=== PATIENT | male | born 1940 | race Caucasian/White ===

== ENCOUNTER 2016-09-24 15:35 | Inpatient (IN) | payer MEDICARE, MEDICAID ==
--- NOTE | 2016-09-24 18:20 | ED Physician Chart ---
Chief Complaint/HPI - Patient Information Date Seen:: 09/24/16 Time Seen:: 18:17 Chief Complaint:: COFFEE GROUNDS EMESIS X 2 DAYS History of Present Illness:: The patient is nonverbal and unable to provide a accurate history. Nursing notes which accompany the patient stated that he has had coffee ground emesis over the past 24 hours. 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 Hypertension and a history of CHF. Allergies:: Allergies Allergy/AdvReac Type Severity Reaction Status Date / Time No Known Allergies Allergy Verified 05/13/16 12:35 Vitals:: Vital Signs - 8 hr 09/24/16 16:06 Temp 96.6 F HR 89 RR 19 BP 111/62 O2 Sat % 97 <Manuel Guzman - Last Filed: 09/24/16 18:52> - Patient Information Allergies:: Allergies Allergy/AdvReac Type Severity Reaction Status Date / Time No Known Allergies Allergy Verified 05/13/16 12:35 Vitals:: Vital Signs - 8 hr 09/24/16 16:06 Temp 96.6 F HR 89 RR 19 BP 111/62 O2 Sat % 97 <Siddharth Augustine - Last Filed: 09/24/16 20:33> Review of Systems - Review of Systems General/Constitutional: Other (the patient is too demented to provide a reliable review of systems.) <Manuel Guzman - Last Filed: 09/24/16 18:52> Past Medical History - Past Medical History Past Medical History: HTN, CHF, CVA/TIA, Other (failure to thrive.) Social History: Care Facility (patient has a gastrostomy tube in the epigastric region and a colostomy in the lower part of the abdomen.) Employment:: Patient unable to provide any social history. <Manuel Guzman - Last Filed: 09/24/16 18:52> Family Medical History - Family Member Mother History Unknown: Yes Father History Unknown: Yes <Manuel Guzman - Last Filed: 09/24/16 18:52> Physical Exam - Physical Examination Other Gen/Cons comments:: The patient is a 75-year-old male who is nonverbal and here for evaluation of coffee ground emesis and pressure sores. Head: Atraumatic Eyes: Lids, conjuctiva normal, PERRL Other Eyes comments:: Uncooperative with the EOM exam. Other Skin comments:: The patient has pressure ulcerations involving the coccyx region, and both feet. ENMT: Nasal exam nl Other ENMT comments:: Multiple missing and decayed teeth. Gag reflex is intact oral hydration is adequate. Neck: No JVD Other Neck comments:: The patient has muscular rigidity on examination of the neck to both AP flexion and lateral rotation to both the right and the left. Respiratory: Nl effort/Exclusion, No Wheeze/Rhonchi/Rales (on anterior auscultation the patient has no wheezing rales or rhonchi.) GI: No tenderness/rebounding/guarding, No organomegaly, No mass/bruits ( decreased but present bowel sounds.) Other comments:: West catheter is in place. <Manuel Guzman - Last Filed: 09/24/16 18:52> Labs/Radiology/EKG Results - Lab Results Results: Laboratory Tests 09/24/16 09/24/16 09/24/16 19:27 19:27 19:27 WBC 22.7 H* D RBC 3.04 L Hgb 9.3 L Hct 27.7 L MCV 91.2 MCH 30.7 MCHC Differential 33.7 RDW 16.0 Plt Count 246 D MPV 9.2 PT 10.4 INR 1.05 PTT (Actin FS) 27.6 Sodium 144 Potassium 2.8 L* Chloride 115 H Carbon Dioxide 23.6 Anion Gap 8.2 BUN 32 H Creatinine 0.7 Est GFR ( Amer) TNP Est GFR (Non-Af Amer) TNP BUN/Creatinine Ratio 45.7 Glucose 137 H Calcium 7.5 L Total Bilirubin 0.5 AST 51 H ALT 80 H Alkaline Phosphatase 118 H Total Protein 5.9 L Albumin 2.1 L Globulin 3.8 Albumin/Globulin Ratio 0.6 L <Siddharth Augustine - Last Filed: 09/24/16 20:33> ED Septic Shock - <6hrs of presentation: Vital Signs: Vital Signs - 8 hr 09/24/16 16:06 Temp 96.6 F HR 89 RR 19 BP 111/62 O2 Sat % 97 <Manuel Guzman - Last Filed: 09/24/16 18:52> - . Is Septic Shock (SBP<90, OR Lactate>4 mmol\L) present?: No - <6hrs of presentation: Vital Signs: Vital Signs - 8 hr 09/24/16 16:06 Temp 96.6 F HR 89 RR 19 BP 111/62 O2 Sat % 97 <Siddharth Augustine - Last Filed: 09/24/16 20:33> Reassessment (Disposition) - Reassessment Reassessment Condition:: Unchanged - Diagnosis Diagnosis:: GI BLEEDING SEVERE ANEMIA - Patient Disposition Discharge/Transfer:: Acute Care w/in this hosp Admitting Medical Physician:: Guillermo Vinson Condition at Disposition:: Unchanged <Siddhrath Augustine - Last Filed: 09/24/16 20:33> ED Discharge Plan <Manuel Guzman - Last Filed: 09/24/16 18:52> <Siddharth Augustine - Last Filed: 09/24/16 20:33> - Patient Disposition Admit/Discharge/Transfer: Acute Care w/in this hosp Condition at Disposition: Unchanged
[2016-09-24] MEDS ORDERED: Sodium Chloride 0.9% 1,000 ML IV ONE (18:36)
[2016-09-24 19:46] LABS: HEMATOCRIT 27.7 % (39.0-49.0); HEMOGLOBIN 9.3 gm/dL (12.6-17.4); MEAN CELL VOLUME 91.2 fl (80-99); MEAN CORPUSCULAR HEMOGLOBIN 30.7 pg (27.0-31.0); MEAN CORPUSCULAR HGB CONC 33.7 pg (28.0-36.0); MEAN PLATELET VOLUME 9.2 fl; RED BLOOD COUNT 3.04 Mil/cmm (3.80-5.80)
[2016-09-24 19:50] LABS: PLATELET COUNT 246 Th/cmm (150-400); WHITE BLOOD COUNT 22.7 Th/cmm (4.8-10.8)
[2016-09-24 19:58] LABS: ALB/GLOB RATIO 0.6 (1.0-1.8); ALKALINE PHOSPHATASE 118 U/L (34-104); ANION GAP 8.2 (7.0-16.0); BILIRUBIN,TOTAL 0.5 mg/dL (0.3-1.0); BUN - UREA NITROGEN 32 mg/dL (7-25); BUN/CREATININE RATIO 45.7; CALCIUM SERUM 7.5 mg/dL (8.6-10.3); CARBON DIOXIDE 23.6 mEq/L (21.0-31.0); CHLORIDE 115 mEq/L (98-107); CREATININE - SERUM 0.7 mg/dL (0.7-1.3); GLUCOSE 137 mg/dL (70-105); SGOT 51 U/L (13-39); SGPT/ALT 80 U/L (7-52); SODIUM SERUM 144 mEq/L (136-145)
[2016-09-24 20:05] LABS: INR 1.05 (0.5-1.4); PROTHROMBIN TIME (TEST) 10.4 SECONDS (9.5-11.5)
[2016-09-24 20:22] LABS: POTASSIUM SERUM 2.8 mEq/L (3.5-5.1)
[2016-09-24] MEDS ORDERED: 0.9% NS w/20 mEq KCL 1,000 ML IV SCH (20:26)
[2016-09-24 20:38] LABS: BAND NEUTROPHILE 8 % (0-10); BASOPHIL 0 % (0-3); EOSINOPHIL 2 % (0-5); NEUTROPHILS 83 % (40-80); PLATELET ESTIMATE ADEQUATE (NORMAL); PLATELET MORPHOLOGY NORMAL (NORMAL); TOTAL CELLS COUNTED 100
[2016-09-24] MEDS ORDERED: 0.9% NS w/20 mEq KCL 1,000 ML IV ONE (20:42)
[2016-09-24 22:03] LABS: URINE BILIRUBIN NEGATIVE (NEGATIVE); URINE BLOOD NEGATIVE (NEGATIVE); URINE COLOR YELLOW; URINE GLUCOSE (UA) NEGATIVE (NEGATIVE); URINE KETONE NEGATIVE (NEGATIVE); URINE PH 6.5; URINE PROTEIN TRACE mg/dL (NEGATIVE); URINE UROBILINOGEN 0.2 E.U./dL (0.2 - 1.0)
[2016-09-24 22:04] LABS: URINE BACTERIA NONE SEEN /hpf (NONE SEEN); URINE EPITHELIAL CELLS NONE SEEN /lpf (FEW); URINE RBC NONE SEEN /hpf (0-5); URINE WBC NONE SEEN /hpf (0-5)
[2016-09-24 22:34] VITALS: BP 156/70
[2016-09-24] MEDS ORDERED: Magnesium Hydroxide (MOM) 30 mL UDC GT PRN (22:49)
--- NOTE | 2016-09-24 22:54 | Admit Criteria Form ---
Admit Criteria Forms - Admit Criteria Diagnosis: GASTROINTESTINAL BLEEDING Clinical Indications for Inpatient Care (Place 'X' for any and all applicable criteria): Ongoing inpatient care may be indicated for gastrointestinal bleeding with ANY ONE of the following (4)(20)(21)(22)(23)(24): [ ]I. Active bleeding (eg, fresh voluminous blood in emesis or nasogastric aspirate, or per rectum) [ ]II. Hemodynamic instability [ ]III. Anticoagulation therapy or coagulopathy ((eg, advanced liver disease, irreversible anticoagulation) [ ]IV. Ischemic colitis (22) [ ]V. Endoscopy showing arterial bleeding, adherent clot, nonbleeding visible vessel, varices, flat red spots, ulcer size greater than 2 cm, or portal hypertensive gastropathy [ ]. High-risk low platelet count [X]VII. Anemia requiring inpatient care as indicated by ANY ONE of the following a)[X] Cognitive impairment b)[ ] Syncope c)[ ] Heart failure d)[ ] Chest pain e)[ ] Dyspnea f)[ ] Other findings suggesting inadequate perfusion (eg, peripheral or myocardial ischemia, end organ dysfunction) [ ]VIII. High-risk low platelet count [ ]IX. Suspected variceal cause of bleeding as indicated by ANY ONE of the following(27)(28): a)[ ] Known varices b)[ ] Hepatomegaly or splenomegaly c)[ ] Ascites d)[ ] Jaundice or scleral icterus e)[ ] History of liver disease (eg, cirrhosis) f)[ ] Physical findings of portal hypertension (eg, caput medusa) g)[ ] Comorbid disorder indicating risk for portal vein thrombosis (eg , abdominal surgery, sepsis, shock, exchange transfusion, prior umbilical vein catheterization) Extended stay may be needed until ALL of the following are present(20)(38)(47): [ ]a) Hemodynamic stability [ ]b) No evidence of active bleeding (eg, stable Hematocrit) [ ]c) Platelet count, prothrombin time, and partial thromboplastin time acceptable for next level of care [ ]d) Surgical or other acute intervention not needed [ ]e) Oral hydration and diet tolerated The original [facility] [employer] content created by [employer] has been revised. The portions of the content which have been revised are identified through the use of italic text or in bold, and [facility] has neither reviewed nor approved the modified material. All other unmodified content is copyright [facility]. Please see references footnoted in the original [facility] edition 2016 Admit Criteria Met?: Yes
[2016-09-24] MEDS: Azithromycin 500 MG in Sodium Chloride 0.9% 250 ML IV SCH (23:27)
[2016-09-25] MEDS: Levothyroxine 0.112 Mg Tab GT SCH (06:43)
[2016-09-25 09:19] LABS: ALB/GLOB RATIO 0.6 (1.0-1.8); ALKALINE PHOSPHATASE 117 U/L (34-104); ANION GAP 3.8 (7.0-16.0); BILIRUBIN,TOTAL 0.6 mg/dL (0.3-1.0); BUN - UREA NITROGEN 24 mg/dL (7-25); CALCIUM SERUM 7.4 mg/dL (8.6-10.3); CHLORIDE 118 mEq/L (98-107); CREATININE - SERUM 0.6 mg/dL (0.7-1.3); GLUCOSE 101 mg/dL (70-105); SGOT 46 U/L (13-39); SGPT/ALT 69 U/L (7-52); SODIUM SERUM 144 mEq/L (136-145)
[2016-09-25 09:35] LABS: HEMATOCRIT 26.3 % (39.0-49.0); MEAN CELL VOLUME 91.5 fl (80-99); MEAN CORPUSCULAR HEMOGLOBIN 31.2 pg (27.0-31.0); MEAN CORPUSCULAR HGB CONC 34.1 pg (28.0-36.0); PLATELET COUNT 222 Th/cmm (150-400); POTASSIUM SERUM 2.8 mEq/L (3.5-5.1); RED BLOOD COUNT 2.87 Mil/cmm (3.80-5.80); RED CELL DISTRIBUTION WIDTH 16.8 % (11.5-20.0)
[2016-09-25 10:06] LABS: BAND NEUTROPHILE 4 % (0-10); EOSINOPHIL 3 % (0-5); NEUTROPHILS 77 % (40-80); PLATELET ESTIMATE ADEQUATE (NORMAL); PLATELET MORPHOLOGY GIANT PLATELETS SEEN (NORMAL); POLYCHROMASIA 1+; TOTAL CELLS COUNTED 100
[2016-09-25] MEDS: Pantoprazole 40 mg/Packet GT SCH (10:10)
--- NOTE | 2016-09-25 10:26 | Diagnostic Imaging Report ---
History: Dyspnea Findings: Cardiac silhouette is enlarged. The aorta is tortuous. Slight prominence of bronchovascular markings in the lung bases. There is a PICC line catheter with its tip in the region of the left axillary vein. Impression: Signs of mild pulmonary edema. PICC line catheter tip in the left axillary vein.
--- NOTE | 2016-09-25 16:29 | General Progress Note ---
Subjective - Review of Systems Service Date: 09/25/16 Subjective: Non Verbal Objective - Results Result Diagrams: 09/25/16 08:50 09/25/16 08:50 Recent Labs: Laboratory Last Values WBC 16.0 Th/cmm (4.8-10.8) H D 09/25/16 08:50 RBC 2.87 Mil/cmm (3.80-5.80) L 09/25/16 08:50 Hgb 9.0 gm/dL (12.6-17.4) L 09/25/16 08:50 Hct 26.3 % (39.0-49.0) L 09/25/16 08:50 MCV 91.5 fl (80-99) 09/25/16 08:50 MCH 31.2 pg (27.0-31.0) H 09/25/16 08:50 MCHC Differential 34.1 pg (28.0-36.0) 09/25/16 08:50 RDW 16.8 % (11.5-20.0) 09/25/16 08:50 Plt Count 222 Th/cmm (150-400) 09/25/16 08:50 MPV 9.0 fl 09/25/16 08:50 Band Neutrophils % 4 % (0-10) 09/25/16 08:50 Neutrophils (Manual) 77 % (40-80) 09/25/16 08:50 Lymphocytes 11 % (20-50) L 09/25/16 08:50 Monocytes 5 % (2-10) 09/25/16 08:50 Eosinophils 3 % (0-5) 09/25/16 08:50 Basophils 0 % (0-3) 09/24/16 19:27 Platelet Estimate ADEQUATE (NORMAL) 09/25/16 08:50 Platelet Morphology GIANT PLATELETS SEEN (NORMAL) 09/25/16 08:50 Polychromasia 1+ 09/25/16 08:50 RBC Morph Micro Appear ABNORMAL (NORMAL) 09/25/16 08:50 PT 10.4 SECONDS (9.5-11.5) 09/24/16 19:27 INR 1.05 (0.5-1.4) 09/24/16 19:27 PTT (Actin FS) 27.6 SECONDS (26.0-38.0) 09/24/16 19:27 Sodium 144 mEq/L (136-145) 09/25/16 08:50 Potassium 2.8 mEq/L (3.5-5.1) L* 09/25/16 08:50 Chloride 118 mEq/L (98-107) H 09/25/16 08:50 Carbon Dioxide 25.0 mEq/L (21.0-31.0) 09/25/16 08:50 Anion Gap 3.8 (7.0-16.0) L 09/25/16 08:50 BUN 24 mg/dL (7-25) 09/25/16 08:50 Creatinine 0.6 mg/dL (0.7-1.3) L 09/25/16 08:50 Est GFR ( Amer) TNP 09/25/16 08:50 Est GFR (Non-Af Amer) TNP 09/25/16 08:50 BUN/Creatinine Ratio 40.0 09/25/16 08:50 Glucose 101 mg/dL (70-105) 09/25/16 08:50 Calcium 7.4 mg/dL (8.6-10.3) L 09/25/16 08:50 Total Bilirubin 0.6 mg/dL (0.3-1.0) 09/25/16 08:50 AST 46 U/L (13-39) H 09/25/16 08:50 ALT 69 U/L (7-52) H 09/25/16 08:50 Alkaline Phosphatase 117 U/L (34-104) H 09/25/16 08:50 Total Protein 5.8 gm/dL (6.0-8.3) L 09/25/16 08:50 Albumin 2.1 gm/dL (4.2-5.5) L 09/25/16 08:50 Globulin 3.7 gm/dL 09/25/16 08:50 Albumin/Globulin Ratio 0.6 (1.0-1.8) L 09/25/16 08:50 Urine Source [place] 09/24/16 18:55 Urine Color YELLOW 09/24/16 18:55 Urine Clarity CLEAR (CLEAR) 09/24/16 18:55 Urine pH 6.5 09/24/16 18:55 Ur Specific [place] 1.015 (1.005-1.030) 09/24/16 18:55 Urine Protein TRACE mg/dL (NEGATIVE) 09/24/16 18:55 Urine Glucose (UA) NEGATIVE mg/dL (NEGATIVE) 09/24/16 18:55 Urine Ketones NEGATIVE mg/dL (NEGATIVE) 09/24/16 18:55 Urine Blood NEGATIVE (NEGATIVE) 09/24/16 18:55 Urine Nitrate NEGATIVE (NEGATIVE) 09/24/16 18:55 Urine Bilirubin NEGATIVE (NEGATIVE) 09/24/16 18:55 Urine Urobilinogen 0.2 E.U./dL (0.2 - 1.0) 09/24/16 18:55 Ur Leukocyte Esterase NEGATIVE (NEGATIVE) 09/24/16 18:55 Urine RBC NONE SEEN /hpf (0-5) 09/24/16 18:55 Urine WBC NONE SEEN /hpf (0-5) 09/24/16 18:55 Ur Epithelial Cells NONE SEEN /lpf (FEW) 09/24/16 18:55 Urine Bacteria NONE SEEN /hpf (NONE SEEN) 09/24/16 18:55 Blood Type A POSITIVE 09/24/16 19:27 Antibody Screen NEGATIVE 09/24/16 19:27 - Physical Exam Vitals and I&O: Vital Signs Temp 97.2 F 09/25/16 11:24 Pulse 61 09/25/16 11:24 Resp 17 09/25/16 11:24 BP 119/51 09/25/16 11:24 Pulse Ox 98 09/25/16 11:24 Intake & Output 09/24/16 09/25/16 09/25/16 18:59 06:59 18:59 Intake Total 260 Balance 260 Weight (lbs) 74.843 kg Intake: Intake, IV Amount 260 Potassium Chloride 20 meq 260 In Sodium Chloride 0.9% 250 ml @ 130 mls/hr IV Q4H [facility] Rx#:[id number] Active Medications: Current Medications Acetaminophen (Tylenol 650mg/20.3ml Suspension) 650 mg GT Q6H PRN PRN Reason: PAIN OR FEVER >100 Stop: 11/23/16 22:48 Chlorpromazine (Thorazine) 25 mg GT Q6H PRN; Protocol PRN Reason: Hiccups Stop: 11/23/16 22:48 Clonidine HCl (Catapres) 0.1 mg GT Q6H PRN PRN Reason: BP MAINTENANCE (PER PROTOCOL) Stop: 04/25/17 22:48 Azithromycin 500 mg/ Sodium (Chloride) 250 mls @ 250 mls/hr IV Q24HR [facility] Stop: 11/23/16 21:59 Last Admin: 09/24/16 23:27 Dose: 250 mls/hr Sodium Chloride (Nacl 0.9%) 1,000 mls @ 75 mls/hr IV .[id number] [facility] Stop: 11/23/16 22:29 Potassium Chloride 20 meq/ (Sodium Chloride) 260 mls @ 130 mls/hr IV Q4H [facility] Stop: 09/25/16 18:59 Last Admin: 09/25/16 16:02 Dose: 130 mls/hr Levothyroxine Sodium (Synthroid) 0.112 mg GT QDAC [facility] Stop: 11/24/16 07:29 Last Admin: 09/25/16 06:43 Dose: Not Given Magnesium Hydroxide (Milk Of Magnesia) 30 ml GT HS PRN PRN Reason: Constipation Stop: 11/23/16 22:48 Pantoprazole Sodium (Protonix) 40 mg GT DAILY [facility] Stop: 11/24/16 08:59 Last Admin: 09/25/16 10:10 Dose: Not Given General: Alert, Other (Eyes open, non verbal, not following commands) HEENT: Atraumatic Neck: Supple Cardiovascular: Regular rate Lungs: Clear to auscultation Abdomen: Bowel sounds, Soft, Other (PEG in place) Extremities: Other (No edema) Neurological: Other (Bed bound) Skin: Other (Sacral ulcer stage IV) - Procedures Procedures: Procedures Procedure Code Date BLOOD TRANSFUSION SERVICE 18761 04/03/16 COMPRESSION OF BACK USING PRESSURE DRESSING [id number] 01/19/16 EGD BIOPSY SINGLE/MULTIPLE 15046 04/03/[address] GASTROSTOMY TUBE 66879 12/12/15 ESOPHAGOGASTRODUODENOSCOPY [EGD] W/CLOSED BIOPSY 45.16 12/06/13 EXCISION OF LOWER ESOPHAGUS, ENDO, DIAGN 3GI05GQ 01/19/16 EXCISION OF STOMACH, ENDO, DIAGN [id number] 04/03/16 INSERTION OF FEEDING DEVICE INTO STOMACH, PERC APPROACH 9IT19AM 12/12/15 OTHER GROUP THERAPY 94.44 04/15/12 RECREATIONAL THERAPY 93.81 12/23/10 TRANSFUSE NONAUT RED BLOOD CELLS IN PERIPH VEIN, PERC 33355B0 05/13/16 VACCINATION NEC 99.55 01/23/14 Assessment/Plan - Problem List Patient Problems: All Active Problems INCREASED IN WEAKNESS (Acute 06/20/14) LOW HGB (Acute 01/11/14) - Assessment Assessment: Patient is awake, non verbal, not following commands. WBC improved, awaiting GI eval. - Plan Plan: Will continue same management. Nutritional Asmnt/Malnutr-PDOC - Dietary Evaluation Malnutrition Findings (Please click <Entered> for more info): Nutritional Asmnt/Malnutrition Start: 09/25/16 09: 31 Text: Status: Active Freq: Document 09/25/16 11:29 MMULHERN (Rec: 09/25/16 11:51 MMULHERN MACARIO- [email or web address]) Nutritional Asmnt/Malnutrition Patient General Information Nutritional Screening High Risk Screening Diagnosis (Reason for visit) Coffee ground emesis, GI bleed Pertinent Medical Hx/Surgical Hx CVA, CHF, Left lower quadrant colostomy and Gastrostomy (per nursing notes) Subjective Information Patient with history of G-tube feeding and colostomy; G tube currently clamped due to NPO status. Admitted from [facility] with coffee ground emesis x 2 days. Tube feeding order placed prior to RD seeing patient, but tube feeding not yet started at time of visit. No recent vomiting. Current Diet Order/ Nutrition Support Fibersource HN at 60ml/hr. This provides 1440 ml, 1728 kcal, 77 gm pro Patient / S.O Can't verbalize diet edu Pertinent Medications synthroid, MOM, protonix, Kclor 20meq Pertinent Labs (09/25) K 2.8, Ca 7.4, ASK46, ALT 69, ALkaline phosphatase 117, Total protein 5.8, albumin 2.1 Nutritional Hx/Data Height 1.7 m Height (Calculated Centimeters) 170.2 Current Weight (lbs) 74.843 kg Weight (Calculated Kilograms) 74.8 Weight (Calculated Grams) 72279.7 [place] Body Weight 148 % [place] Body Weight 111 Recent Weight Change No Weight Status Approriate GI Symptoms Difficult in: Chewing Swallowing Food Allergies No Cultural/Ethnic/[place] Belief none indicated Estimated Nutritional Goals BEE in Kcals: Using Current wt Calories/Kcals/Kg (25-30 kcal/kg) Kcals Calculated 2602-9187 kcal/day Protein: Using Current wt Protein g/k-1.2 gm/kg Protein Calculated 75-90 gm/day Fluid: ml 8254-8032 ml/day Nutritional Problem 2. Problem Problem Altered nutrition related lab values related to Etiology electrolyte imbalance as evidenced by Signs/Symptoms: K 2.8 1. Problem Problem Inadequate energy intake related to Etiology lack of initiation of tube feeding as evidenced by Signs/Symptoms: patient not yet started on tube feeding, meeting <50% of estimated nutrient needs. Malnutrition Related to Morbid Obesity Malnutrition related to morbid obesity No Intervention/Recommendation Comments 1. Start tube feeding as ordered (Fibersoruce at 60 ml/ hr) as this is adequate to meet nutrient needs and will provide a source of potassium. Expected Outcomes/Goals Expected Outcomes/Goals tube feeding initiated and is tolerated, weight remains stable, K normalizes. Physician Parameters for PEM Serum Albumin (g/dl) <2.4 (Severe)
--- NOTE | 2016-09-25 18:03 | History & Physical ---
CHIEF COMPLAINT: Coffee-ground emesis. HISTORY OF PRESENT ILLNESS: This is a case of a 75-year-old male who is a permanent resident of assisted. I received a call from assisted stating that the patient had a coffee-ground emesis, reason why he was sent to Emergency Room for evaluation and treatment. During evaluation at ER, it was found that WBC was 22 and the x-ray shows early infiltrates. PAST MEDICAL HISTORY: The patient has past medical history of dementia; dysphagia with PEG in place; hypertension; CHF; and decubitus ulcer, stage IV. The patient is nonverbal and bedridden. SOCIAL HISTORY: The patient is a permanent resident of a assisted. FAMILY HISTORY: Unremarkable. ALLERGIES: No known allergies. REVIEW OF SYSTEMS: Information was not obtained secondary to the patient's mental condition. PHYSICAL EXAMINATION: GENERAL: Does reveal a fairly nourished and developed male, awake, eyes opened, but not verbal, not following verbal commands. HEENT: Head is normocephalic and atraumatic. Eyes: Pupils are reactive to light. Nose: No evidence of any obstruction. Ears: No evidence of any discharge. Mouth: Fairly keep. LUNGS: Bilateral air entry. No wheezing and no crackles. HEART: Regular and rhythmic. ABDOMEN: Soft, nontender, and bowel sounds are present with PEG in place. EXTREMITIES: No edema. NEUROLOGICAL: The patient is awake and alert, nonverbal, not following verbal commands. Neurological examination was not completed secondary to the patient's mental condition. IMPRESSION: 1. Coffee-ground emesis. 2. Dementia. 3. Dysphagia. 4. Hypertension. 5. Congestive heart failure. 6. Sacral decubitus ulcer, stage IV. PLAN: 1. The patient will be admitted in the medical/surgical floor. 2. Azithromycin IV. 3. Consult with Dr. Swann. 4. Continue with assisted medications. 5. Continue with the same nutrition through feeding tube. 6. CBC, CMP, and TSH in a.m. JOB# [id number]
--- NOTE | 2016-09-25 19:29 | Consultation ---
REASON FOR CONSULTATION: GI bleeding. HISTORY OF PRESENT ILLNESS: This consult was obtained through the courtesy of Dr. Guillermo Vinson for this 75-year-old who has multiple medical problems including hypertension, CVA, congestive heart failure, dysphagia, status post G-tube placement, who was admitted from a skilled nursing for coffee ground emesis. Unfortunately, the patient is unable to give any history. Apparently, he vomited coffee ground materials so the patient was sent from the facility and GI consult was called in for further evaluation. PAST MEDICAL HISTORY: Hypertension, congestive heart failure, CVA, dysphagia. PAST SURGICAL HISTORY: He had bilateral knee replacement. He had colostomy and he had G-tube replaced endoscopically. SOCIAL HISTORY: Not known, but at this time, the patient is nonsmoker, nonalcoholic, no IV drug abuse. FAMILY HISTORY: Noncontributory unobtainable. REVIEW OF SYSTEMS: Unobtainable. ALLERGIES: No known drug allergies. MEDICATIONS: The patient is on Tylenol, Thorazine, Catapres, Synthroid, milk of magnesia, Protonix, potassium. PHYSICAL EXAMINATION: GENERAL: The patient is awake, nonverbal. VITAL SIGNS: Blood pressure is 107/45, heart rate 67, respiratory rate 18, temperature is 97.5. HEAD AND NECK: Pupils reactive to light and accommodation. Extraocular muscles could not be tested. Sclerae are anicteric. Conjunctivae not pale. Oral cavity, no lesion. NECK: Supple, no jugular venous distention, no carotid bruit or lymph node. CHEST: Good respiratory movements. LUNGS: Clear to auscultation. CARDIOVASCULAR: Regular rate and rhythm. No murmur or gallop. ABDOMEN: Soft, obese, positive bowel sounds. There is a G-tube in place. There is a colostomy bag on the lower abdomen. EXTREMITIES: Lower extremities, no edema. CENTRAL NERVOUS SYSTEM: The patient has contracted posture, unable to evaluate. LABORATORY DATA: Hemoglobin 9, hematocrit 26.3, white count was 22.7, now down to 16. Potassium is low at 2.8. Albumin is 2.1. The patient had a chest x-ray which showed mild pulmonary edema. PICC line in the left axillary vein. IMPRESSION: A 75-year-old with multiple medical problems, now with coffee ground emesis. ASSESSMENT AND PLAN: Coffee ground emesis, rule out peptic ulcer disease versus erosive esophagitis less likely to be upper GI malignancy, could be Angelika-Jenkins tear. RECOMMENDATIONS: 1. Monitor H and H. 2. Monitor labs. 3. PPI. 4. Endoscopy most likely Tuesday unless patient is actively bleeding. 5. Further recommendations to follow. 6. Dysphagia. At this time, we will resume feeding. 7. Hypokalemia, per PCP. Other medical problems such as hypertension, congestive heart failure, hypothyroidism, CVA, etc. as per Dr. Vinson. Thank you, Dr. Vinson for allowing me to participate in the care of this patient. If you have any further questions, please let me know. JOB# [id number] RENE
[2016-09-25] MEDS: Azithromycin 500 MG in Sodium Chloride 0.9% 250 ML IV SCH (21:00)
[2016-09-26] MEDS: Sodium Chloride 0.9% 1,000 ML IV SCH (05:33)
[2016-09-26] MEDS: Levothyroxine 0.112 Mg Tab GT SCH (06:50)
[2016-09-26 07:25] LABS: ALB/GLOB RATIO 0.6 (1.0-1.8); ALKALINE PHOSPHATASE 128 U/L (34-104); ANION GAP 7.7 (7.0-16.0); BILIRUBIN,TOTAL 0.6 mg/dL (0.3-1.0); BUN - UREA NITROGEN 17 mg/dL (7-25); BUN/CREATININE RATIO 28.3; CALCIUM SERUM 7.3 mg/dL (8.6-10.3); CARBON DIOXIDE 22.6 mEq/L (21.0-31.0); CHLORIDE 119 mEq/L (98-107); CREATININE - SERUM 0.6 mg/dL (0.7-1.3); GLUCOSE 132 mg/dL (70-105); POTASSIUM SERUM 3.3 mEq/L (3.5-5.1); SGOT 44 U/L (13-39); SGPT/ALT 62 U/L (7-52); SODIUM SERUM 146 mEq/L (136-145)
[2016-09-26] MEDS: Pantoprazole 40 mg/Packet GT SCH (08:29)
[2016-09-26] MEDS: Potassium Chloride Elixir 20 mEq /15 mL UDC GT SCH (11:52)
--- NOTE | 2016-09-26 12:04 | General Progress Note ---
Subjective - Review of Systems Service Date: 09/26/16 Subjective: Non Verbal Objective - Results Result Diagrams: 09/25/16 08:50 09/26/16 06:25 Recent Labs: Laboratory Last Values WBC 16.0 Th/cmm (4.8-10.8) H D 09/25/16 08:50 RBC 2.87 Mil/cmm (3.80-5.80) L 09/25/16 08:50 Hgb 9.0 gm/dL (12.6-17.4) L 09/25/16 08:50 Hct 26.3 % (39.0-49.0) L 09/25/16 08:50 MCV 91.5 fl (80-99) 09/25/16 08:50 MCH 31.2 pg (27.0-31.0) H 09/25/16 08:50 MCHC Differential 34.1 pg (28.0-36.0) 09/25/16 08:50 RDW 16.8 % (11.5-20.0) 09/25/16 08:50 Plt Count 222 Th/cmm (150-400) 09/25/16 08:50 MPV 9.0 fl 09/25/16 08:50 Band Neutrophils % 4 % (0-10) 09/25/16 08:50 Neutrophils (Manual) 77 % (40-80) 09/25/16 08:50 Lymphocytes 11 % (20-50) L 09/25/16 08:50 Monocytes 5 % (2-10) 09/25/16 08:50 Eosinophils 3 % (0-5) 09/25/16 08:50 Basophils 0 % (0-3) 09/24/16 19:27 Platelet Estimate ADEQUATE (NORMAL) 09/25/16 08:50 Platelet Morphology GIANT PLATELETS SEEN (NORMAL) 09/25/16 08:50 Polychromasia 1+ 09/25/16 08:50 RBC Morph Micro Appear ABNORMAL (NORMAL) 09/25/16 08:50 PT 10.4 SECONDS (9.5-11.5) 09/24/16 19:27 INR 1.05 (0.5-1.4) 09/24/16 19:27 PTT (Actin FS) 27.6 SECONDS (26.0-38.0) 09/24/16 19:27 Sodium 146 mEq/L (136-145) H 09/26/16 06:25 Potassium 3.3 mEq/L (3.5-5.1) L 09/26/16 06:25 Chloride 119 mEq/L (98-107) H 09/26/16 06:25 Carbon Dioxide 22.6 mEq/L (21.0-31.0) 09/26/16 06:25 Anion Gap 7.7 (7.0-16.0) 09/26/16 06:25 BUN 17 mg/dL (7-25) 09/26/16 06:25 Creatinine 0.6 mg/dL (0.7-1.3) L 09/26/16 06:25 Est GFR ( Amer) TNP 09/26/16 06:25 Est GFR (Non-Af Amer) TNP 09/26/16 06:25 BUN/Creatinine Ratio 28.3 09/26/16 06:25 Glucose 132 mg/dL (70-105) H 09/26/16 06:25 Calcium 7.3 mg/dL (8.6-10.3) L 09/26/16 06:25 Total Bilirubin 0.6 mg/dL (0.3-1.0) 09/26/16 06:25 AST 44 U/L (13-39) H 09/26/16 06:25 ALT 62 U/L (7-52) H 09/26/16 06:25 Alkaline Phosphatase 128 U/L (34-104) H 09/26/16 06:25 Total Protein 5.8 gm/dL (6.0-8.3) L 09/26/16 06:25 Albumin 2.1 gm/dL (4.2-5.5) L 09/26/16 06:25 Globulin 3.7 gm/dL 09/26/16 06:25 Albumin/Globulin Ratio 0.6 (1.0-1.8) L 09/26/16 06:25 TSH 11.99 uIU/ml (0.34-5.60) H 09/26/16 06:25 Urine Source [place] 09/24/16 18:55 Urine Color YELLOW 09/24/16 18:55 Urine Clarity CLEAR (CLEAR) 09/24/16 18:55 Urine pH 6.5 09/24/16 18:55 Ur Specific [place] 1.015 (1.005-1.030) 09/24/16 18:55 Urine Protein TRACE mg/dL (NEGATIVE) 09/24/16 18:55 Urine Glucose (UA) NEGATIVE mg/dL (NEGATIVE) 09/24/16 18:55 Urine Ketones NEGATIVE mg/dL (NEGATIVE) 09/24/16 18:55 Urine Blood NEGATIVE (NEGATIVE) 09/24/16 18:55 Urine Nitrate NEGATIVE (NEGATIVE) 09/24/16 18:55 Urine Bilirubin NEGATIVE (NEGATIVE) 09/24/16 18:55 Urine Urobilinogen 0.2 E.U./dL (0.2 - 1.0) 09/24/16 18:55 Ur Leukocyte Esterase NEGATIVE (NEGATIVE) 09/24/16 18:55 Urine RBC NONE SEEN /hpf (0-5) 09/24/16 18:55 Urine WBC NONE SEEN /hpf (0-5) 09/24/16 18:55 Ur Epithelial Cells NONE SEEN /lpf (FEW) 09/24/16 18:55 Urine Bacteria NONE SEEN /hpf (NONE SEEN) 09/24/16 18:55 Blood Type A POSITIVE 09/24/16 19:27 Antibody Screen NEGATIVE 09/24/16 19:27 - Physical Exam Vitals and I&O: Vital Signs Temp 97.1 F 09/26/16 08:00 Pulse 60 09/26/16 08:03 Resp 16 09/26/16 08:03 BP 150/77 09/26/16 08:00 Pulse Ox 96 09/26/16 08:03 Intake & Output 09/25/16 09/26/16 09/26/16 18:59 06:59 18:59 Intake Total 260 960 Output Total 900 Balance 260 60 Intake: Intake, IV Amount 260 Potassium Chloride 20 meq 260 In Sodium Chloride 0.9% 250 ml @ 130 mls/hr IV Q4H [facility] Rx#:[id number] Tube Feeding 720 Other 240 Output: Gastric Drainage 0 Urine 900 Other: # Bowel Movements 1 Active Medications: Current Medications Acetaminophen (Tylenol 650mg/20.3ml Suspension) 650 mg GT Q6H PRN PRN Reason: PAIN OR FEVER >100 Stop: 11/23/16 22:48 Last Admin: 09/25/16 21:17 Dose: 650 mg Chlorpromazine (Thorazine) 25 mg GT Q6H PRN; Protocol PRN Reason: Hiccups Stop: 11/23/16 22:48 Last Admin: 09/26/16 10:33 Dose: 25 mg Clonidine HCl (Catapres) 0.1 mg GT Q6H PRN PRN Reason: BP MAINTENANCE (PER PROTOCOL) Stop: 11/23/16 22:48 Azithromycin 500 mg/ Sodium (Chloride) 250 mls @ 250 mls/hr IV Q24HR [facility] Stop: 11/23/16 21:59 Last Admin: 09/25/16 21:00 Dose: 250 mls/hr Sodium Chloride (Nacl 0.9%) 1,000 mls @ 75 mls/hr IV .[id number] [facility] Stop: 11/23/16 22:29 Last Admin: 09/26/16 05:33 Dose: 75 mls/hr Levothyroxine Sodium (Synthroid) 0.125 mg IVP DAILY [facility] Stop: 11/26/16 08:59 Magnesium Hydroxide (Milk Of Magnesia) 30 ml GT HS PRN PRN Reason: Constipation Stop: 11/23/16 22:48 Pantoprazole Sodium (Protonix) 40 mg GT DAILY [facility] Stop: 11/24/16 08:59 Last Admin: 09/26/16 08:29 Dose: 40 mg Potassium Chloride (Potassium Chloride Elixir) 40 meq GT DAILY [facility] Stop: 11/25/16 11:29 Last Admin: 09/26/16 11:52 Dose: 40 meq - Procedures Procedures: Procedures Procedure Code Date BLOOD TRANSFUSION SERVICE 75934 04/03/16 COMPRESSION OF BACK USING PRESSURE DRESSING [id number] 01/19/16 EGD BIOPSY SINGLE/MULTIPLE 19241 04/03/[address] GASTROSTOMY TUBE 45973 12/12/15 ESOPHAGOGASTRODUODENOSCOPY [EGD] W/CLOSED BIOPSY 45.16 12/06/13 EXCISION OF LOWER ESOPHAGUS, ENDO, DIAGN [id number] 01/19/16 EXCISION OF STOMACH, ENDO, DIAGN [id number] 04/03/16 INSERTION OF FEEDING DEVICE INTO STOMACH, PERC APPROACH [id number] 12/12/15 OTHER GROUP THERAPY 94.44 04/15/12 RECREATIONAL THERAPY 93.81 12/23/10 TRANSFUSE NONAUT RED BLOOD CELLS IN PERIPH VEIN, PERC 63253J9 05/13/16 VACCINATION NEC 99.55 08/23/13 Assessment/Plan - Problem List Patient Problems: All Active Problems INCREASED IN WEAKNESS (Acute 06/20/14) LOW HGB (Acute 01/11/14) - Assessment Assessment: Patient is awake, non verbal, not following commands. WBC improved, awaiting GI eval. - Plan Plan: Will continue same management. Nutritional Asmnt/Malnutr-PDOC - Dietary Evaluation Malnutrition Findings (Please click <Entered> for more info): Nutritional Asmnt/Malnutrition Start: 09/25/16 09: 31 Text: Status: Active Freq: Document 09/25/16 11:29 MMULN (Rec: 09/25/16 11:51 MMULHERN MACARIO- [email or web address]) Nutritional Asmnt/Malnutrition Patient General Information Nutritional Screening High Risk Screening Diagnosis (Reason for visit) Coffee ground emesis, GI bleed Pertinent Medical Hx/Surgical Hx CVA, CHF, Left lower quadrant colostomy and Gastrostomy (per nursing notes) Subjective Information Patient with history of G-tube feeding and colostomy; G tube currently clamped due to NPO status. Admitted from [facility] with coffee ground emesis x 2 days. Tube feeding order placed prior to RD seeing patient, but tube feeding not yet started at time of visit. No recent vomiting. Current Diet Order/ Nutrition Support Fibersource HN at 60ml/hr. This provides 1440 ml, 1728 kcal, 77 gm pro Patient / S.O Can't verbalize diet edu Pertinent Medications synthroid, MOM, protonix, Kclor 20meq Pertinent Labs (09/25) K 2.8, Ca 7.4, ASK46, ALT 69, ALkaline phosphatase 117, Total protein 5.8, albumin 2.1 Nutritional Hx/Data Height 1.7 m Height (Calculated Centimeters) 170.2 Current Weight (lbs) 74.843 kg Weight (Calculated Kilograms) 74.8 Weight (Calculated Grams) 69800.7 [place] Body Weight 148 % [place] Body Weight 111 Recent Weight Change No Weight Status Approriate GI Symptoms Difficult in: Chewing Swallowing Food Allergies No Cultural/Ethnic/Baptism Belief none indicated Estimated Nutritional Goals BEE in Kcals: Using Current wt Calories/Kcals/Kg (25-30 kcal/kg) Kcals Calculated 9386-3566 kcal/day Protein: Using Current wt Protein g/k-1.2 gm/kg Protein Calculated 75-90 gm/day Fluid: ml 0475-3746 ml/day Nutritional Problem 2. Problem Problem Altered nutrition related lab values related to Etiology electrolyte imbalance as evidenced by Signs/Symptoms: K 2.8 1. Problem Problem Inadequate energy intake related to Etiology lack of initiation of tube feeding as evidenced by Signs/Symptoms: patient not yet started on tube feeding, meeting <50% of estimated nutrient needs. Malnutrition Related to Morbid Obesity Malnutrition related to morbid obesity No Intervention/Recommendation Comments 1. Start tube feeding as ordered (Fibersoruce at 60 ml/ hr) as this is adequate to meet nutrient needs and will provide a source of potassium. Expected Outcomes/Goals Expected Outcomes/Goals tube feeding initiated and is tolerated, weight remains stable, K normalizes. Physician Parameters for PEM Serum Albumin (g/dl) <2.4 (Severe)
--- NOTE | 2016-09-26 13:16 | ED Physician Chart ---
Chief Complaint/HPI - Patient Information Allergies:: Allergies Allergy/AdvReac Type Severity Reaction Status Date / Time No Known Allergies Allergy Verified 05/13/16 12:35 Family Medical History - Family Member Mother History Unknown: Yes Father History Unknown: Yes Ethnicity: Unknown Living Status: Unknown Other Medical History: Unable to get information due to patient is non-verbal. Labs/Radiology/EKG Results - Lab Results Results: Laboratory Tests 09/24/16 09/24/16 09/24/16 18:55 19:27 19:27 WBC 22.7 H* D RBC 3.04 L Hgb 9.3 L Hct 27.7 L MCV 91.2 MCH 30.7 MCHC Differential 33.7 RDW 16.0 Plt Count 246 D MPV 9.2 Band Neutrophils % 8 Neutrophils (Manual) 83 H Lymphocytes 5 L Monocytes 2 Eosinophils 2 Basophils 0 Platelet Estimate ADEQUATE Platelet Morphology NORMAL RBC Morph Micro Appear NORMAL PT 10.4 INR 1.05 PTT (Actin FS) 27.6 Sodium Potassium Chloride Carbon Dioxide Anion Gap BUN Creatinine Est GFR ( Amer) Est GFR (Non-Af Amer) BUN/Creatinine Ratio Glucose Calcium Total Bilirubin AST ALT Alkaline Phosphatase Total Protein Albumin Globulin Albumin/Globulin Ratio Urine Source [place] Urine Color YELLOW Urine Clarity CLEAR Urine pH 6.5 Ur Specific [place] 1.015 Urine Protein TRACE Urine Glucose (UA) NEGATIVE Urine Ketones NEGATIVE Urine Blood NEGATIVE Urine Nitrate NEGATIVE Urine Bilirubin NEGATIVE Urine Urobilinogen 0.2 Ur Leukocyte Esterase NEGATIVE Urine RBC NONE SEEN Urine WBC NONE SEEN Ur Epithelial Cells NONE SEEN Urine Bacteria NONE SEEN Blood Type Antibody Screen 09/24/16 09/24/16 19:27 19:27 WBC RBC Hgb Hct MCV MCH MCHC Differential RDW Plt Count MPV Band Neutrophils % Neutrophils (Manual) Lymphocytes Monocytes Eosinophils Basophils Platelet Estimate Platelet Morphology RBC Morph Micro Appear PT INR PTT (Actin FS) Sodium 144 Potassium 2.8 L* Chloride 115 H Carbon Dioxide 23.6 Anion Gap 8.2 BUN 32 H Creatinine 0.7 Est GFR ( Amer) TNP Est GFR (Non-Af Amer) TNP BUN/Creatinine Ratio 45.7 Glucose 137 H Calcium 7.5 L Total Bilirubin 0.5 AST 51 H ALT 80 H Alkaline Phosphatase 118 H Total Protein 5.9 L Albumin 2.1 L Globulin 3.8 Albumin/Globulin Ratio 0.6 L Urine Source Urine Color Urine Clarity Urine pH Ur Specific [place] Urine Protein Urine Glucose (UA) Urine Ketones Urine Blood Urine Nitrate Urine Bilirubin Urine Urobilinogen Ur Leukocyte Esterase Urine RBC Urine WBC Ur Epithelial Cells Urine Bacteria Blood Type A POSITIVE Antibody Screen NEGATIVE Assessment - Assessment General Assessment: THIS PATIENT ARRIVED IN THE ED FROM HIS NURSING FACILITY FOR EVALUATION OF COFFEE GROUND EMESIS. HIS ARRIVAL WAS JUST PRIOR TO THE END OF MY SHIFT. THE PT WAS NON-VERBAL BUT APPEARED TO BE IN NO DISTRESS. I PUT IN ORDERS FOR TO DRAW LABS AND A LITER OF NORMAL SALINE. THE PATIENT WAS PASSED ON TO DR. JAMES FOR WORK UP AND DISPOSITION ED Discharge Plan - Patient Disposition Admit/Discharge/Transfer: Acute Care w/in this hosp Condition at Disposition: Unchanged
[2016-09-26 16:49] LABS: % BASOPHILS 0.3 % (0.0-2.0); % EOSINOPHILS 6.7 % (0.0-5.0); % LYMPHOCYTES 10.9 % (20.0-50.0); % MONOCYTES 2.9 % (2.0-10.0); % NEUTROPHILS 79.2 % (40.0-80.0); HEMATOCRIT 25.8 % (39.0-49.0); HEMOGLOBIN 8.7 gm/dL (12.6-17.4); MEAN CELL VOLUME 92.6 fl (80-99); MEAN CORPUSCULAR HEMOGLOBIN 31.2 pg (27.0-31.0); MEAN CORPUSCULAR HGB CONC 33.7 pg (28.0-36.0); MEAN PLATELET VOLUME 8.8 fl; NEUTROPHILE ABSOLUTE 9.6 Th/cmm (1.8-8.0); PLATELET COUNT 225 Th/cmm (150-400); RED BLOOD COUNT 2.78 Mil/cmm (3.80-5.80); RED CELL DISTRIBUTION WIDTH 17.5 % (11.5-20.0); WHITE BLOOD COUNT 12.1 Th/cmm (4.8-10.8)
[2016-09-26] MEDS: Azithromycin 500 MG in Sodium Chloride 0.9% 250 ML IV SCH (21:58)
[2016-09-27 07:20] LABS: NEUTROPHILE ABSOLUTE 9.7 Th/cmm (1.8-8.0)
[2016-09-27 07:30] LABS: ALB/GLOB RATIO 0.6 (1.0-1.8); ALKALINE PHOSPHATASE 129 U/L (34-104); ANION GAP 7.9 (7.0-16.0); BILIRUBIN,TOTAL 0.6 mg/dL (0.3-1.0); BUN - UREA NITROGEN 12 mg/dL (7-25); CALCIUM SERUM 8.1 mg/dL (8.6-10.3); CARBON DIOXIDE 22.5 mEq/L (21.0-31.0); CHLORIDE 119 mEq/L (98-107); CREATININE - SERUM 0.5 mg/dL (0.7-1.3); GLUCOSE 144 mg/dL (70-105); POTASSIUM SERUM 3.4 mEq/L (3.5-5.1); SGOT 34 U/L (13-39); SGPT/ALT 52 U/L (7-52); SODIUM SERUM 146 mEq/L (136-145)
[2016-09-27 07:38] LABS: HEMATOCRIT 29.9 % (39.0-49.0); HEMOGLOBIN 10.1 gm/dL (12.6-17.4); MEAN CELL VOLUME 93.1 fl (80-99); MEAN CORPUSCULAR HEMOGLOBIN 31.4 pg (27.0-31.0); MEAN CORPUSCULAR HGB CONC 33.8 pg (28.0-36.0); MEAN PLATELET VOLUME 8.7 fl; PLATELET COUNT 220 Th/cmm (150-400); RED BLOOD COUNT 3.21 Mil/cmm (3.80-5.80); RED CELL DISTRIBUTION WIDTH 17.1 % (11.5-20.0); WHITE BLOOD COUNT 11.9 Th/cmm (4.8-10.8)
[2016-09-27 07:39] LABS: % BASOPHILS 0.1 % (0.0-2.0); % EOSINOPHILS 5.4 % (0.0-5.0); % LYMPHOCYTES 10.5 % (20.0-50.0); % MONOCYTES 3.2 % (2.0-10.0); % NEUTROPHILS 80.8 % (40.0-80.0)
[2016-09-27] MEDS: Potassium Chloride Elixir 20 mEq /15 mL UDC GT SCH (08:31)
[2016-09-27] MEDS: Pantoprazole 40 mg/Packet GT SCH (08:31)
--- NOTE | 2016-09-27 08:38 | General Progress Note ---
Subjective - Review of Systems Service Date: 09/27/16 Subjective: Non Verbal Objective - Results Result Diagrams: 09/27/16 06:35 09/27/16 06:35 Recent Labs: Laboratory Last Values WBC 11.9 Th/cmm (4.8-10.8) H 09/27/16 06:35 RBC 3.21 Mil/cmm (3.80-5.80) L 09/27/16 06:35 Hgb 10.1 gm/dL (12.6-17.4) L 09/27/16 06:35 Hct 29.9 % (39.0-49.0) L D 09/27/16 06:35 MCV 93.1 fl (80-99) 09/27/16 06:35 MCH 31.4 pg (27.0-31.0) H 09/27/16 06:35 MCHC Differential 33.8 pg (28.0-36.0) 09/27/16 06:35 RDW 17.1 % (11.5-20.0) 09/27/16 06:35 Plt Count 220 Th/cmm (150-400) 09/27/16 06:35 MPV 8.7 fl 09/27/16 06:35 Neutrophils % 80.8 % (40.0-80.0) H 09/27/16 06:35 Band Neutrophils % 4 % (0-10) 09/25/16 08:50 Lymphocytes % 10.5 % (20.0-50.0) L 09/27/16 06:35 Monocytes % 3.2 % (2.0-10.0) 09/27/16 06:35 Eosinophils % 5.4 % (0.0-5.0) H 09/27/16 06:35 Basophils % 0.1 % (0.0-2.0) 09/27/16 06:35 Neutrophils (Manual) 77 % (40-80) 09/25/16 08:50 Lymphocytes 11 % (20-50) L 09/25/16 08:50 Monocytes 5 % (2-10) 09/25/16 08:50 Eosinophils 3 % (0-5) 09/25/16 08:50 Basophils 0 % (0-3) 09/24/16 19:27 Platelet Estimate ADEQUATE (NORMAL) 09/25/16 08:50 Platelet Morphology GIANT PLATELETS SEEN (NORMAL) 09/25/16 08:50 Polychromasia 1+ 09/25/16 08:50 RBC Morph Micro Appear ABNORMAL (NORMAL) 09/25/16 08:50 PT 10.4 SECONDS (9.5-11.5) 09/24/16 19:27 INR 1.05 (0.5-1.4) 09/24/16 19:27 PTT (Actin FS) 27.6 SECONDS (26.0-38.0) 09/24/16 19:27 Sodium 146 mEq/L (136-145) H 09/27/16 06:35 Potassium 3.4 mEq/L (3.5-5.1) L 09/27/16 06:35 Chloride 119 mEq/L (98-107) H 09/27/16 06:35 Carbon Dioxide 22.5 mEq/L (21.0-31.0) 09/27/16 06:35 Anion Gap 7.9 (7.0-16.0) 09/27/16 06:35 BUN 12 mg/dL (7-25) 09/27/16 06:35 Creatinine 0.5 mg/dL (0.7-1.3) L 09/27/16 06:35 Est GFR ( Amer) TNP 09/27/16 06:35 Est GFR (Non-Af Amer) TNP 09/27/16 06:35 BUN/Creatinine Ratio 24.0 09/27/16 06:35 Glucose 144 mg/dL (70-105) H 09/27/16 06:35 Calcium 8.1 mg/dL (8.6-10.3) L 09/27/16 06:35 Total Bilirubin 0.6 mg/dL (0.3-1.0) 09/27/16 06:35 AST 34 U/L (13-39) 09/27/16 06:35 ALT 52 U/L (7-52) 09/27/16 06:35 Alkaline Phosphatase 129 U/L (34-104) H 09/27/16 06:35 Total Protein 6.4 gm/dL (6.0-8.3) 09/27/16 06:35 Albumin 2.4 gm/dL (4.2-5.5) L 09/27/16 06:35 Globulin 4.0 gm/dL 09/27/16 06:35 Albumin/Globulin Ratio 0.6 (1.0-1.8) L 09/27/16 06:35 TSH 11.99 uIU/ml (0.34-5.60) H 09/26/16 06:25 Urine Source [place] 09/24/16 18:55 Urine Color YELLOW 09/24/16 18:55 Urine Clarity CLEAR (CLEAR) 09/24/16 18:55 Urine pH 6.5 09/24/16 18:55 Ur Specific [place] 1.015 (1.005-1.030) 09/24/16 18:55 Urine Protein TRACE mg/dL (NEGATIVE) 09/24/16 18:55 Urine Glucose (UA) NEGATIVE mg/dL (NEGATIVE) 09/24/16 18:55 Urine Ketones NEGATIVE mg/dL (NEGATIVE) 09/24/16 18:55 Urine Blood NEGATIVE (NEGATIVE) 09/24/16 18:55 Urine Nitrate NEGATIVE (NEGATIVE) 09/24/16 18:55 Urine Bilirubin NEGATIVE (NEGATIVE) 09/24/16 18:55 Urine Urobilinogen 0.2 E.U./dL (0.2 - 1.0) 09/24/16 18:55 Ur Leukocyte Esterase NEGATIVE (NEGATIVE) 09/24/16 18:55 Urine RBC NONE SEEN /hpf (0-5) 09/24/16 18:55 Urine WBC NONE SEEN /hpf (0-5) 09/24/16 18:55 Ur Epithelial Cells NONE SEEN /lpf (FEW) 09/24/16 18:55 Urine Bacteria NONE SEEN /hpf (NONE SEEN) 09/24/16 18:55 Blood Type A POSITIVE 09/24/16 19:27 Antibody Screen NEGATIVE 09/24/16 19:27 - Physical Exam Vitals and I&O: Vital Signs Temp 97.7 F 09/27/16 04:00 Pulse 60 09/27/16 04:00 Resp 18 09/27/16 04:00 BP 162/97 09/27/16 04:00 Pulse Ox 100 09/27/16 04:00 Intake & Output 09/26/16 09/27/16 09/27/16 18:59 06:59 18:59 Intake Total 720 240 Balance 720 240 Intake: Tube Feeding 720 240 Other: # Voids 2 # Bowel Movements 1 Stool Characteristics Soft Brown Active Medications: Current Medications Acetaminophen (Tylenol 650mg/20.3ml Suspension) 650 mg GT Q6H PRN PRN Reason: PAIN OR FEVER >100 Stop: 11/23/16 22:48 Last Admin: 09/25/16 21:17 Dose: 650 mg Chlorpromazine (Thorazine) 25 mg GT Q6H PRN; Protocol PRN Reason: Hiccups Stop: 11/23/16 22:48 Last Admin: 09/26/16 10:33 Dose: 25 mg Clonidine HCl (Catapres) 0.1 mg GT Q6H PRN PRN Reason: BP MAINTENANCE (PER PROTOCOL) Stop: 11/23/16 22:48 Azithromycin 500 mg/ Sodium (Chloride) 250 mls @ 250 mls/hr IV Q24HR [facility] Stop: 11/23/16 21:59 Last Admin: 09/26/16 21:58 Dose: 250 mls/hr Sodium Chloride (Nacl 0.9%) 1,000 mls @ 75 mls/hr IV .[id number] [facility] Stop: 11/23/16 22:29 Last Admin: 09/26/16 05:33 Dose: 75 mls/hr Levothyroxine Sodium (Synthroid) 0.125 mg IVP DAILY [facility] Stop: 11/26/16 08:59 Last Admin: 09/27/16 08:31 Dose: 0.125 mg Magnesium Hydroxide (Milk Of Magnesia) 30 ml GT HS PRN PRN Reason: Constipation Stop: 11/23/16 22:48 Pantoprazole Sodium (Protonix) 40 mg GT DAILY [facility] Stop: 11/24/16 08:59 Last Admin: 09/27/16 08:31 Dose: 40 mg Potassium Chloride (Potassium Chloride Elixir) 40 meq GT DAILY [facility] Stop: 11/25/16 11:29 Last Admin: 09/27/16 08:31 Dose: 40 meq General: Other (Sleping but arousable, non verbal, not following verbal commands. ) HEENT: Atraumatic Neck: Supple Cardiovascular: Regular rate Lungs: Clear to auscultation Abdomen: Bowel sounds, Soft, Other (PEG in place) Extremities: Other (No edema) Neurological: Other (Bed bound) Skin: Other (Sacral ulcer stage IV) Psych/Mental Status: Other (Confused, non verbal) - Procedures Procedures: Procedures Procedure Code Date BLOOD TRANSFUSION SERVICE 21714 04/03/16 COMPRESSION OF BACK USING PRESSURE DRESSING [id number] 01/19/16 EGD BIOPSY SINGLE/MULTIPLE 34858 04/03/[address] GASTROSTOMY TUBE 36734 12/12/15 ESOPHAGOGASTRODUODENOSCOPY [EGD] W/CLOSED BIOPSY 45.16 12/06/13 EXCISION OF LOWER ESOPHAGUS, ENDO, DIAGN [id number] 01/19/16 EXCISION OF STOMACH, ENDO, DIAGN [id number] 04/03/16 INSERTION OF FEEDING DEVICE INTO STOMACH, PERC APPROACH [id number] 12/12/15 OTHER GROUP THERAPY 94.44 04/15/12 RECREATIONAL THERAPY 93.81 12/23/10 TRANSFUSE NONAUT RED BLOOD CELLS IN PERIPH VEIN, PERC 02075P8 05/13/16 VACCINATION NEC 99.55 08/23/13 Assessment/Plan - Problem List Patient Problems: All Active Problems INCREASED IN WEAKNESS (Acute 06/20/14) LOW HGB (Acute 01/11/14) - Assessment Assessment: Patient is awake, non verbal, not following commands. WBC continuing improving. - Plan Plan: As soon WBC come to normal patient will be discharge. K is replaced. Will continue same management. Nutritional Asmnt/Malnutr-PDOC - Dietary Evaluation Malnutrition Findings (Please click <Entered> for more info): Nutritional Asmnt/Malnutrition Start: 09/25/16 09: 31 Text: Status: Active Freq: Document 09/25/16 11:29 MMULHERN (Rec: 09/25/16 11:51 MMULHERN MACARIO FN) Nutritional Asmnt/Malnutrition Patient General Information Nutritional Screening High Risk Screening Diagnosis (Reason for visit) Coffee ground emesis, GI bleed Pertinent Medical Hx/Surgical Hx CVA, CHF, Left lower quadrant colostomy and Gastrostomy (per nursing notes) Subjective Information Patient with history of G-tube feeding and colostomy; G tube currently clamped due to NPO status. Admitted from [facility] with coffee ground emesis x 2 days. Tube feeding order placed prior to RD seeing patient, but tube feeding not yet started at time of visit. No recent vomiting. Current Diet Order/ Nutrition Support Fibersource HN at 60ml/hr. This provides 1440 ml, 1728 kcal, 77 gm pro Patient / S.O Can't verbalize diet edu Pertinent Medications synthroid, MOM, protonix, Kclor 20meq Pertinent Labs (09/25) K 2.8, Ca 7.4, ASK46, ALT 69, ALkaline phosphatase 117, Total protein 5.8, albumin 2.1 Nutritional Hx/Data Height 1.7 m Height (Calculated Centimeters) 170.2 Current Weight (lbs) 74.843 kg Weight (Calculated Kilograms) 74.8 Weight (Calculated Grams) 72652.7 [place] Body Weight 148 % [place] Body Weight 111 Recent Weight Change No Weight Status Approriate GI Symptoms Difficult in: Chewing Swallowing Food Allergies No Cultural/Ethnic/Caodaism Belief none indicated Estimated Nutritional Goals BEE in Kcals: Using Current wt Calories/Kcals/Kg (25-30 kcal/kg) Kcals Calculated 5513-9148 kcal/day Protein: Using Current wt Protein g/k-1.2 gm/kg Protein Calculated 75-90 gm/day Fluid: ml 3985-1517 ml/day Nutritional Problem 2. Problem Problem Altered nutrition related lab values related to Etiology electrolyte imbalance as evidenced by Signs/Symptoms: K 2.8 1. Problem Problem Inadequate energy intake related to Etiology lack of initiation of tube feeding as evidenced by Signs/Symptoms: patient not yet started on tube feeding, meeting <50% of estimated nutrient needs. Malnutrition Related to Morbid Obesity Malnutrition related to morbid obesity No Intervention/Recommendation Comments 1. Start tube feeding as ordered (Fibersoruce at 60 ml/ hr) as this is adequate to meet nutrient needs and will provide a source of potassium. Expected Outcomes/Goals Expected Outcomes/Goals tube feeding initiated and is tolerated, weight remains stable, K normalizes. Physician Parameters for PEM Serum Albumin (g/dl) <2.4 (Severe)
[2016-09-27] MEDS ORDERED: LEVOTHYROXINE IVP SCH (09:00)
[2016-09-27] MEDS: Sodium Chloride 0.9% 1,000 ML IV SCH (12:07)
[2016-09-27] MEDS ORDERED: Influenza Vaccine 0.5 mL Syr IM ONE (15:00)
--- NOTE | 2016-10-04 23:53 | Discharge Summary ---
CHIEF COMPLAINT: Coffee-ground emesis. HISTORY OF PRESENT ILLNESS: This is a case of a 75-year-old male, who [facility] secondary to he had coffee-ground emesis. During revision in ER, it was found the WBC was 22,000 and x-ray shows early bilateral infiltrates. HOSPITAL COURSE AND TREATMENT: This patient was admitted to the medical-surgical floor. He was started on azithromycin IV. He was continued with jail medication, Protonix IV ____. Consult with ____, GI was done and recommendations were followed. The patient was continued same nutrition through feeding tube. With this treatment and after 4 days in the hospital, it was considered the patient received the maximum benefit of hospitalization and he could be sent back to jail to continue treatment with primary care physician. At the moment of discharge, the patient was awake, alert, confused, not oriented. The patient ____. CONSULTING DATABASE ADMINISTRATOR IN THIS CASE: Gastrointestinal. IMPRESSIONS: 1. Coffee-ground emesis. 2. Pneumonia. 3. Dementia. 4. Dysphagia. 5. Hypertension. 6. Congestive heart failure. 7. Sacral decubitus ulcer, stage 4. [facility]# [id number]
== END 2016-09-27 16:35 | DRG 377 ==
LOC: ER 15:35 → MSI 21:00
PROVIDERS: ADMIT General Practice; ATTEND General Practice
PROC: 05H833Z Insertion of Infusion Device into Left Axillary Vein, Percutaneous Approach (ICD-10-PCS; principal; 2016-09-25)
DX: K92.2 Gastrointestinal hemorrhage, unspecified (principal); L89.154 Pressure ulcer of sacral region, stage 4; I11.0 Hypertensive heart disease with heart failure; I50.9 Heart failure, unspecified; F03.90 Unspecified dementia, unspecified severity, without behavioral disturbance, psychotic disturbance, mood disturbance, and anxiety; R13.10 Dysphagia, unspecified; D64.9 Anemia, unspecified; I69.364 Other paralytic syndrome following cerebral infarction affecting left non-dominant side; Z96.653 Presence of artificial knee joint, bilateral; Z93.1 Gastrostomy status; Z93.3 Colostomy status
CPT/HCPCS: 36415-UA; 71010-TC; 80053-TC; 81001-TC; 84443-TC; 85007-TC; 85025-TC; 85027-TC; 85610-TC; 86850-TC; 86900-TC; 86901-TC; 93005; 94760; 96374; J0456; J0696; J3480; J3490; J7030; Q0161; X6456; Z7610